=== PATIENT | female | born 1985 | race Caucasian/White ===

== ENCOUNTER 2021-04-04 09:04 | Emergency (ER) | payer OTHER ==
[~2021-04-04] VITALS: Ht 170.2 cm; Wt 98.6 kg
[2021-04-04 09:21] VITALS: BP 122/54
[2021-04-04] MEDS ORDERED: valACYclovir 500 MG TABLET. PO STA (09:29)
[2021-04-04] MEDS ORDERED: VALA10008 PO (09:50)
[2021-04-04] MEDS ORDERED: DEXA5DRO4 OD (09:50)
--- NOTE | 2021-04-04 09:52 | PHYS DOC ---
Past History Past Surgical History: , Tubal ligation Alcohol Use: None General Adult EDM: Chief Complaint: SKIN PROBLEM HPI: HPI: 35-year-old female presents with rash on the right side of her face. This started 5 days ago on the top of her head and her scalp. She went to see her primary care physician who was concerned it could be cellulitis. She was placed on Keflex. She has taken this for 4 days. The rash has spread from her scalp down her face around her eyes and on her nose on the right side. She has also noticed some change in visual acuity. That is why she decided to come in today. The patient has had chickenpox in the past. She denies fever or chills. The lesions are very sensitive even to air blowing past them. Review of Systems: Review of Systems: Constitutional: Denies fever or chills Eyes: Denies change in visual acuity HENT: Denies nasal congestion or sore throat Respiratory: Denies cough or shortness of breath Cardiovascular: Denies chest pain or edema GI: Denies abdominal pain, nausea, vomiting, bloody stools or diarrhea : Denies dysuria Musculoskeletal: Denies back pain or joint pain Integument: Rash Neurologic: Denies headache, focal weakness or sensory changes Endocrine: Denies polyuria or polydipsia Lymphatic: Denies swollen glands Psychiatric: Denies depression or anxiety Current Medications: Current Meds: Current Medications Medications (Trade) Dose Ordered Sig/Coty Start Time Stop Time Status Last Admin Dose Admin Valacyclovir HCl (Valtrex) 1,000 mg 1X STAT 04/04/21 09:29 04/04/21 09:31 DC Allergies: Allergies: Allergies Coded Allergies Type Severity Reaction Last Updated Verified latex Allergy Unknown 04/04/21 Yes phenazopyridine Allergy Unknown vomitting 04/04/21 Yes Physical Exam: PE: Constitutional: Well developed, well nourished, no acute distress, non-toxic appearance. [] HENT: Normocephalic, atraumatic, bilateral external ears normal, oropharynx moist, no oral exudates, nose normal. [] Eyes: PERRLA, EOMI, conjunctiva normal, no discharge. [] Neck: Normal range of motion, no tenderness, supple, no stridor. [] Cardiovascular:Heart rate regular rhythm, no murmur [] Lungs & Thorax: Bilateral breath sounds clear to auscultation [] Abdomen: Bowel sounds normal, soft, no tenderness, no masses, no pulsatile masses. [] Skin: Red papules on the right side of the upper face and nose, some with ve sicles. [] Back: No tenderness, no CVA tenderness. [] Extremities: No tenderness, no cyanosis, no clubbing, ROM intact, no edema. [] Neurologic: Alert and oriented X 3, normal motor function, normal sensory function, no focal deficits noted. [] Psychologic: Affect normal, judgement normal, mood normal. [] Current Patient Data: Vital Signs: Vital Signs Date Time Temp Pulse Resp B/P (MAP) Pulse Ox O2 Delivery O2 Flow Rate FiO2 04/04/21 09:21 98.4 88 18 122/54 95 Room Air EKG: EKG: [] Radiology/Procedures: Radiology/Procedures: [] Heart Score: C/O Chest Pain: N/A Risk Factors: Risk Factors: DM, Current or recent (<one month) smoker, HTN, HLP, family history of CAD, obesity. Risk Scores: Score 0 - 3: 2.5% MACE over next 6 weeks - Discharge Home Score 4 - 6: 20.3% MACE over next 6 weeks - Admit for Clinical Observation Score 7 - 10: 72.7% MACE over next 6 weeks - Early Invasive Strategies Course & Med Decision Making: Course & Med Decision Making Pertinent Labs and Imaging studies reviewed. (See chart for details) The patient's rash is consistent with herpes zoster. As I inspected her eye, I did not see any direct, obvious globe involvement at this time. She is reporting visual change so herpes zoster ophthalmicus is a significant concern. I have placed her on 1 g of Valtrex 3 times daily for 7 days. I have also prescribed dexamethasone eyedrops for that eye. I have stressed the need for her to follow-up with ophthalmology. She is stable for discharge at this time. [] Rosa Disclaimer: Rosa Disclaimer: This electronic medical record was generated, in whole or in part, using a voice recognition dictation system. Departure Departure: Impression: Primary Impression: Herpes zoster with ophthalmic complication Qualified Codes: B02.30 - Zoster ocular disease, unspecified Disposition: HOME / SELF CARE / HOMELESS Condition: STABLE Referrals: PCP,UNKNOWN (PCP) Patient Instructions: Shingles, [id number] Scripts Dexamethasone Sod Phosphate (DEXAMETHASONE SODIUM PHOSPHATE) 5 Ml Drops 1 DROP OD BID for shingles for 7 Days, #5 ML 0 Refills Prov: JUNE HARE DO 04/04/21 Valacyclovir Hcl (VALACYCLOVIR) 1,000 Mg Tablet 1 TAB PO TID for shingles for 7 Days, #21 TAB Prov: JUNE HARE DO 04/04/21 JUNE HARE DO Apr 04, 2021 09:52
== END 2021-04-04 09:54 | disposition home or self-care (01) ==
LOC: ER 09:04
DX: B02.30 Zoster ocular disease, unspecified (principal); Z88.8 Allergy status to other drugs, medicaments and biological substances; Z91.040 Latex allergy status
CPT/HCPCS: 99283